=== PATIENT | female | born 2000 | race Caucasian/White ===

== ENCOUNTER 2025-01-07 08:44 | Emergency (ER) | payer OTHER, SELFPAY ==
--- NOTE | 2025-01-07 08:53 | ED.SKABFB ---
HPI - Skin/Abscess/Foreign Bdy General Chief complaint: Skin/Abscess/Foreign Body Stated complaint: tick bite Time Seen by Provider: 01/07/25 08:52 Source: patient Mode of arrival: ambulatory Limitations: no limitations History of Present Illness HPI narrative: Araceli is a 24-year-old female patient presenting to the clinic today with complaints of a tick bite to her left buttocks. She reports she noticed the tick and was able to remove the take entirely on Sunday. States that the tick was not likely on her skin for more than 24 hours. Does have a raised indurated area with a target like lesion. Area is itchy. States that she also has 2 other insect bite areas to the lower left glute. Denies any fevers, joint pain, chills, or body aches. No nausea vomiting or diarrhea. Related Data Allergies Allergy/AdvReac Type Severity Reaction Status Date / Time No Known Allergies Allergy Verified 01/07/25 09:11 Review of Systems Review of Systems: Pertinent positives per HPI. Patient denies any fever, chills, headache, visual changes, dizziness, cough, runny nose, sore throat, shortness of breath, chest pain, palpitations, nausea, vomiting, diarrhea, constipation, abdominal pain, or any urinary issues. [facility] Family History Family History Father Family history of gout Family history of arthritis Social History Social History Smoking status: Never smoker Alcohol intake: never Comments At the time of my signature, I reviewed and agree with the nursing past medical, surgical, social, and family history. There is no relevant family history pertinent to the patient complaint. Exam Narrative: General: Well-developed, well nourished, in no apparent distress Head: Normocephalic, atraumatic. Cardio: Regular rate and rhythm, s1 and s2 normal, no murmur appreciated. Resp: Clear to auscultation bilaterally, no rhonchi, rales, wheezing or rubs. Integumentary: [place], warm, and dry, red raised target like lesion to the left lateral lower glut measuring approximately 2 x 2 cm and induration/redness and 2 small 1x 1 cm red raised indurated area is to the left lower medial glut. Course Course Emergency Course: Portions of this record may have been created with voice recognition software. Level of Care: Express Care Visit Vital Signs Vital signs: Vital signs reviewed MDM - Skin/Abscess/Foreign Bdy MDM Narrative Medical decision making narrative: At the time of visit patient is resting comfortably on the exam table. Patient appears to be nontoxic. Plan: I suspect patient has insect bites/tick bite to the left glute. Prescription for 200 mg of doxycycline prophylactic and triamcinolone cream was sent to the pharmacy. Supportive measures were discussed with the patient and they voiced understanding discharge instructions and agrees to treatment plan. Return precautions reviewed Differential Diagnosis Differential diagnosis: Likely abscess of skin or subcutaneous tissue, viral exanthem, dermatophytosis, urticaria, herpes zoster, allergic reaction to drug, cellulitis, eczema, insect bites, impetigo and contact dermatitis Discharge Plan Discharge Clinical Impression: Tick bite of buttock Patient Disposition: Home Condition: Stable Instructions: Antibiotic Form, Tick Bite (ED) Additional Instructions: Apply triamcinolone cream as directed Take doxycycline as directed Avoid scratching as this can cause a secondary infection May take benadryl 25-50mg every 6 hours as needed for itching. May take Tylenol/Motrin as needed for fevers or pain Follow up with your PCP in 3-5 days if symptoms persist or sooner if they worsen Go to the Emergency Room if symptoms worsen- fever, rash spreading with treatment, shortness of breath, tongue swelling, drooling, chest pain, increase in redness, increased in pain, streaking, or purulent discharge Patient Language: [place] Citizen Prescriptions: New doxycycline monohydrate 100 mg capsule 200 mg PO DAILY 1 Days Qty: 2 0RF triamcinolone acetonide 0.1 % cream 1 applic topical BID 7 Days Qty: 30 0RF Follow-up/Referrals: PHYSICIAN,BRAND ATTENDANT [Primary Care Provider] - Time of Disposition: 09:13 Quality NIHSS Nursing Documentation ED NIHSS nursing documentation: reviewed/agree
[2025-01-07 09:01] VITALS: BP 115/71; PULSE 89; RESP 16; TEMP 36.9; O2SAT 100
== END 2025-01-07 09:19 | disposition home or self-care (01) ==
PROVIDERS: Emergency Provider Nurse Practitioner Family
DX: S30.860A Insect bite (nonvenomous) of lower back and pelvis, initial encounter (principal); W57.XXXA Bitten or stung by nonvenomous insect and other nonvenomous arthropods, initial encounter
CPT/HCPCS: 99213; G0463